=== PATIENT | female | born 1955 | race Caucasian/White ===

== ENCOUNTER 2017-06-18 08:43 | Emergency (ER) | payer OTHER ==
[2017-06-18 09:04] VITALS: BMI 30.4
--- NOTE | 2017-06-18 09:25 | C.PDOC ---
History Of Present Illness <Nguyen Nicole DO - Last Filed: 06/18/17 16:39> <Kailash Mae DO - Last Filed: 06/18/17 17:45> Patient is a 61 year old female with PMHx of gastritis who presents to the ED with complaint of right arm pain since night. Patient denies trauma or injury to her shoulder or arm. She complains of right hand pain, weakness, and numbness. She states her pain was 8/10 yesterday, 7/10 today. She states she took ibuprofen and naproxen yesterday without relief. (Nguyen Nicole DO) History Per: Patient Onset/Duration Of Symptoms: Days Current Symptoms Are (Timing): Still Present Severity: Moderate Pain Scale Rating Of: 7 <Nguyen Nicole DO - Last Filed: 06/18/17 16:39> <Kailash Mae DO - Last Filed: 06/18/17 17:45> Chief Complaint (Nursing): Upper Extremity Problem/Injury Past Medical History - Medical History PMH: Bronchitis, Gastritis Family History: States: Unknown Family Hx - Social History Hx Alcohol Use: No Hx Substance Use: No - Immunization History Hx Tetanus Toxoid Vaccination: No Hx Influenza Vaccination: No Hx Pneumococcal Vaccination: No <Nguyen Nicole DO - Last Filed: 06/18/17 16:39> Vital Signs: Last Vital Signs Temp 98.1 F 06/18/17 11:02 Pulse 68 06/18/17 11:02 Resp 20 06/18/17 11:02 BP 113/81 06/18/17 11:02 Pulse Ox 97 06/18/17 16:40 Review Of Systems Constitutional: Negative for: Fever, Chills Eyes: Negative for: Pain ENT: Negative for: Ear Pain Cardiovascular: Negative for: Chest Pain, Palpitations Respiratory: Negative for: Cough, Shortness of Breath Gastrointestinal: Negative for: Nausea, Vomiting, Abdominal Pain Musculoskeletal: Positive for: Shoulder Pain, Arm Pain, Hand Pain. Negative for : Neck Pain Neurological: Positive for: Numbness (right arm) <Nguyen Nicole DO - Last Filed: 06/18/17 16:39> Physical Exam - Physical Exam Appears: No Acute Distress Skin: Warm, Other (left neck skin tag about 1cm in diameter) Head: Atraumatic, Normacephalic Eye(s): bilateral: EOMI Nose: Normal Oral Mucosa: Moist Tongue: Normal Appearing Lips: Normal Appearing Neck: Normal ROM, No Midline Cervical Tenderness, No Paracervical Tenderness, Supple Chest: Symmetrical Cardiovascular: Rhythm Regular Respiratory: Normal Breath Sounds Gastrointestinal/Abdominal: Bowel Sounds, Soft, No Tenderness Extremity: No Normal ROM (right shoulder ROM reduced due to pain) Extremity: Bilateral: Other (5/5 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 [Outside] Disposition: HOME/ ROUTINE Condition: GOOD Additional Instructions: Thank you for letting us take care of you today. The emergency medical care you received today was directed at your acute symptoms. If you were prescribed any medication, please fill it and take as directed. It may take several days for your symptoms to resolve. Return to the Emergency Department if your symptoms worsen, do not improve, or if you have any other problems. Please contact your doctor or call one of the physicians/clinics you have been referred to that are listed on the Patient Visit Information form that is included in your discharge packet. Bring any paperwork you were given at discharge with you along with any medications you are taking to your follow up visit. Our treatment cannot replace ongoing medical care by a primary care provider (PCP) outside of the emergency department. Thank you for allowing the [facility] team to be part of your care today. Follow up with the clinic this week for re-evaluation and further management. Prescriptions: Ibuprofen [Motrin] 600 mg PO Q6 PRN #20 tab PRN Reason: Pain, Moderate (4-7) predniSONE [Prednisone] 40 mg PO DAILY #10 tab Instructions: Shoulder Sprain Forms: Work Excuse - Clinical Impression Clinical Impression: Muscle strain - PA / MAP PLOTTER / Resident Statement NAMAN has reviewed & agrees with the documentation as recorded. / has examined the patient and agrees with the treatment plan. <Nguyen Nicole DO - Last Filed: 06/18/17 16:39> - PA / MAP PLOTTER / Resident Statement NAMAN has reviewed & agrees with the documentation as recorded. NAMAN has examined the patient and agrees with the treatment plan. <Kailash Mae DO - Last Filed: 06/18/17 17:45>
--- NOTE | 2017-06-18 10:54 | RAD ---
PROCEDURE: Radiographs of the Right Shoulder HISTORY: right shoulder pain, numbness COMPARISON: No prior. FINDINGS: BONES: Normal. No fracture. JOINTS: Glenohumeral osteoarthritis. Minimal acromioclavicular degenerative arthritis. SOFT TISSUES: Normal. OTHER FINDINGS: None. IMPRESSION: No acute fracture. Right glenohumeral osteoarthritis.
[2017-06-18 11:03] VITALS: BP 113/81; PULSE 68; RESP 20; TEMP 98.1
[2017-06-18 16:41] VITALS: O2SAT 97
== END 2017-06-18 11:14 | disposition home or self-care (01) ==
LOC: C.ER 08:43
DX: S46.911A Strain of unspecified muscle, fascia and tendon at shoulder and upper arm level, right arm, initial encounter (principal); X58.XXXA Exposure to other specified factors, initial encounter

== ENCOUNTER 2018-06-08 10:13 | Observation (INO) | payer MEDICAID, OTHER ==
[2018-06-08 10:21] VITALS: BMI 29.5
--- NOTE | 2018-06-08 11:23 | C.PDOC ---
History Of Present Illness 52-year-old female with a history of Pulmonic valve repair at age 4 presents to the emergency department with complaints of sharp intermittent pain radiating from her epigastric area to her left axilla, feels like it goes under her ribs. . Patient states that when the pain is bad she is short of breath but not diaphoretic. Patient also reports a cough and states that she is a smoker. Patient reports nausea but denies leg pain or swelling. Patient states that she tried Mylanta with no improvement.denies any skin rash. Time Seen by Provider: 06/08/18 10:31 Chief Complaint (Nursing): Abdominal Pain History Per: Patient History/Exam Limitations: no limitations Onset/Duration Of Symptoms: Days Current Symptoms Are (Timing): Still Present Location Of Pain/Discomfort: Epigastric, Other Quality Of Discomfort: "Pain" Associated Symptoms: Nausea, Other (shortness of breath, cough). denies: Vomiting Past Medical History Reviewed: Historical Data, Nursing Documentation, Vital Signs Vital Signs: Last Vital Signs Temp 90 F L 06/08/18 10:21 Pulse 90 06/08/18 10:21 Resp 20 06/08/18 10:21 BP 119/82 06/08/18 10:21 Pulse Ox 96 06/08/18 10:21 - Medical History PMH: Bronchitis, Gastritis Surgical History: No Surg Hx Family History: States: No Known Family Hx - Social History Hx Alcohol Use: No Hx Substance Use: No - Immunization History Hx Tetanus Toxoid Vaccination: No Hx Influenza Vaccination: No Hx Pneumococcal Vaccination: No Review Of Systems Constitutional: Negative for: Fever, Chills, Sweats Cardiovascular: Positive for: Chest Pain. Negative for: Palpitations, Edema, Light Headedness Respiratory: Positive for: Cough, Shortness of Breath Gastrointestinal: Positive for: Nausea, Abdominal Pain (epigastric tenderness). Negative for: Vomiting Genitourinary: Negative for: Dysuria, Frequency Musculoskeletal: Negative for: Leg Pain Skin: Negative for: Rash Neurological: Negative for: Weakness, Numbness, Headache Physical Exam - Physical Exam Appears: Non-toxic, No Acute Distress Skin: Warm, Dry, No Rash Head: Atraumatic, Normacephalic Eye(s): bilateral: Normal Inspection, PERRL, EOMI Oral Mucosa: Moist Neck: Normal, Supple Chest: Symmetrical, No Tenderness Cardiovascular: Rhythm Regular, No Murmur Respiratory: Normal Breath Sounds, No Rales, No Rhonchi, No Wheezing Gastrointestinal/Abdominal: Bowel Sounds, Soft, Tenderness (epigastric), No Distention, No Guarding, No Rebound Extremity: Normal ROM, No Tenderness, No Pedal Edema, No Calf Tenderness Pulses: Left Dorsalis Pedis: Normal, Right Dorsalis Pedis: Normal Neurological/Psych: Oriented x3, Normal Speech, Normal Cognition ED Course And Treatment - Laboratory Results Result Diagrams: 06/08/18 11:32 06/08/18 11:32 Interpretation Of ECG: Normal sinus rhythm at 86bpm, incomplete RBBB, borderline EKG O2 Sat by Pulse Oximetry: 96 (RA) Pulse Ox Interpretation: Normal - Other Rad CXR X-Ray: Viewed By Me, Read By Radiologist Interpretation: IMPRESSION: Prominent reticular opacities at the lung bases more on the left. Medical Decision Making Medical Decision Making: Plan: EKG Chemistry Hematology CXR Pepcid 20mg IVP Urinalysis Old EKG from 07-27-12 reviewed, current EKG is unchanged from prior. 1205 pt with elevated d-dimer, o2 saturation of 94-95 room air; will get chest cta to eval for pe. 1340 pt returned to ed from ct, now crying from pain in left axillary area from movement of stretcher. pt points to area on left side, generalized tenderness to palpation of left lateral chest area. no particular bony tenderness, no warmth or swelling noted, no crepitus palapted. mild erythematous patch now seen distal to tender area, no vesicles noted. chest cta reviewed; pt has cardiomegaly, enlarged pulmonary artery, hiatal hernia and left lung infiltrate. no pe noted, will give pt antibiotics and toradol and admit to Dr Finch, discussed with her. Disposition Discussed With .: Sharon Finch Doctor Will See Patient In The: Hospital - Disposition Disposition: HOSPITALIZED Disposition Time: 14:11 Condition: GOOD - Clinical Impression Clinical Impression: Chest pain, Pneumonia - PA / EGYPTOLOGIST / Resident Statement MD/DO has reviewed & agrees with the documentation as recorded. - Scribe Statement The provider has reviewed the documentation as recorded by the Scribe (Les Rodriguez) All medical record entries made by the Scribe were at my direction and personally dictated by me. I have reviewed the chart and agree that the record accurately reflects my personal performance of the history, physical exam, medical decision making, and the department course for this patient. I have also personally directed, reviewed, and agree with the discharge instructions and disposition.
[2018-06-08 11:41] LABS: BASO # 0.1 K/uL (0.0-0.2); BASO % 0.7 % (0.0-2.0); EOS # 0.1 K/uL (0.0-0.7); EOS % 0.9 % (0.0-4.0); HEMOGLOBIN 14.1 g/dL (11.0-16.0); LYMPH # 2.4 K/uL (1.0-4.3); LYMPH % 21.9 % (20.0-40.0); MEAN CORPUSCULAR HEMOGLOBIN 31.1 pg (27.0-31.0); MEAN CORPUSCULAR HGB CONC 34.5 g/dL (33.0-37.0); MEAN PLATELET VOLUME 9.4 fL (7.2-11.7); MONO # 1.1 K/uL (0.0-0.8); MONO % 10.2 % (0.0-10.0); NEUT # 7.2 K/uL (1.8-7.0); NEUT % 66.3 % (50.0-75.0); RBC 4.55 Mil/uL (3.80-5.20); RED CELL DISTRIBUTION WIDTH 13.2 % (11.5-14.5); WHITE BLOOD COUNT 10.8 K/uL (4.8-10.8)
[2018-06-08 11:44] LABS: SQUAMOUS EPITHIAL 1 /hpf (0-5); URINE BILIRUBIN NEGATIVE (NEGATIVE); URINE BLOOD NEGATIVE (NEGATIVE); URINE CLARITY Hazy (Clear); URINE COLOR Yellow (YELLOW); URINE GLUCOSE (UA) NORMAL (Normal); URINE LEUKOCYTE ESTERASE TRACE Leu/uL (Negative); URINE PROTEIN NEGATIVE (NEGATIVE)
[2018-06-08 11:48] LABS: ALB/GLOB RATIO 1.6 (1.0-2.1); ALBUMIN 4.4 g/dL (3.5-5.0); AST/SGOT 18 U/L (14-36); BLOOD UREA NITROGEN 10 mg/dL (7-17); CALCIUM 9.5 mg/dl (8.6-10.4); GFR NON-AFRICAN AMERICAN > 60; LIPASE 65 U/L (23-300)
[2018-06-08 11:49] LABS: ALT/SGPT < 6 U/L (9-52)
[2018-06-08] MEDS ORDERED: Iodixanol 320 MG/ML 100 ML BOTTLE IV ONE (12:39)
--- NOTE | 2018-06-08 13:21 | RAD ---
Date of service: 06/08/2018 HISTORY: chest pain COMPARISON: Comparison is made with 07/27/2012 TECHNIQUE: Chest PA and lateral views FINDINGS: LUNGS: Prominent reticular opacities noted at the lung bases left more than right. Otherwise no significant interval changes PLEURA: No significant pleural effusion identified. No pneumothorax apparent. CARDIOVASCULAR: No aortic atherosclerotic calcification present. Normal cardiac size. No pulmonary vascular congestion. OSSEOUS STRUCTURES: No significant abnormalities. VISUALIZED UPPER ABDOMEN: Normal. OTHER FINDINGS: None. IMPRESSION: Prominent reticular opacities at the lung bases more on the left.
--- NOTE | 2018-06-08 13:41 | CT ---
Date of service: 06/08/2018 PROCEDURE: CT Chest with contrast (Pulmonary Angiogram) HISTORY: left chest/lung pain, elevated ddimer, smoker COMPARISON: Comparison is made to the previous study dated 07/27/2012 TECHNIQUE: Axial computed tomography images were obtained of the chest in the pulmonary arterial phase of enhancement. Coronal and sagittal reformatted images were created and reviewed. Intravenous contrast dose: 100 mL of Visipaque 320 intravenously. Radiation dose: Total exam DLP = 621.72 mGy-cm. This CT exam was performed using one or more of the following dose reduction techniques: Automated exposure control, adjustment of the mA and/or kV according to patient size, and/or use of iterative reconstruction technique. FINDINGS: PULMONARY ARTERIES: No evidence of filling defect in the visualized pulmonary arteries to suggest acute pulmonary embolus. Again noted is markedly enlarged main pulmonary artery suggestive of underline severe pulmonary hypertension. AORTA: No acute findings. No thoracic aortic aneurysm. Small punctate atherosclerotic calcification at the aorta are noted. LUNGS: Airspace consolidation noted at the left lung lower lobe suspicious for pneumonia or less likely atelectasis. PLEURAL SPACES: Small left pleural effusion is noted. HEART: The heart is mildly to moderately enlarged. The right heart is enlarged. LYMPH NODES: No lymphadenopathy. BONES, CHEST WALL: Unremarkable. No fracture or destructive lesion . The patient is again status post bilateral breast implants. OTHER FINDINGS: Again noted is large hiatus hernia in the retrocardiac space. There is low-attenuation lesion at the anterior aspect of the liver measures 1.6 centimeter has increased in size since the previous exam. Again noted are low-attenuation nodule/small masses at the bilateral adrenal glands which have increased in size since the previous exam. IMPRESSION: No evidence of acute pulmonary embolus. Markedly enlarged main pulmonary artery is again noted. Cardiomegaly and enlargement of the right heart. Airspace consolidation at the left lower lobe associated with small left pleural effusion suspicious for pneumonia. Additional findings as discussed above.
[2018-06-08] MEDS ORDERED: Moxifloxacin IV 400mg/250ml NS 400 MG/250 ML BAG IVPB ONE ×2 (14:02→14:21)
--- NOTE | 2018-06-08 14:38 | CP.PCM.HP ---
<Petr Mckeon - Last Filed: 06/08/18 16:00> History of Present Illness - History of Present Illness History of Present Illness: 62 year old female with a past medical history of pulmonic stenosis, ovarian cyst, and fibroids who presents to the hospital after reporting chest pain located on her left ribs that began on Saturday. She states the pain is sharp in nature and rates it a 6/10 in severity. Patient states the pain was so bad at times it woke her from her sleep the past two nights. Patient denies taking anything for the pain because she didn't know what she should take. She also is reporting generalized fatigue and non-productive cough in conjunction with the presenting symptoms. Patient denies any fevers, chills, headaches, dizziness, changes in vision, abdominal pain, constipation, diarrhea, or any other complaints. PMD: Denies Medical history: pulmonic stenosis, ovarian cyst, fibroids Allergies: PCN, vancomycin Surgical history: Hysterectomy, ? pulmonic valve repair Social history: 1/2-1 ppd x 20 years. Social drinker. Denies illicit drug use. Patient recently relocated from [place] to help her daughter take care of her children. Cardiac history: Does report echocardiogram in the past. Unknown of results. Denies cardiac catherization or stress test. Present on Admission - Present on Admission Any Indicators Present on Admission: No Review of Systems - Constitutional Constitutional: Fatigue. absent: Anorexia, Chills, Fever, Frequent Falls, Malaise, Night Sweats, Weakness - EENT Eyes: absent: Blurred Vision, Diplopia, Itchy Eyes, Loss of Peripheral Vision, Sees Flashes, Loss of Vision Ears: absent: Ear Discharge, Dizziness Nose/Mouth/Throat: absent: Nasal Congestion, Nasal Trauma, Nose Pain, Bleeding Gums, Dysphagia, Mouth Pain, Facial Pain - Cardiovascular Cardiovascular: Chest Pain. absent: Claudication, Irregular Heart Rhythm, Leg Edema, Palpitations, Radiating Pain, Syncope - Respiratory Respiratory: Cough. absent: Dyspnea, Hemoptysis, Stridor, Pain on Inspiration, Change in Mucous Color - Gastrointestinal Gastrointestinal: absent: Belching, Dyspepsia, Dysphagia, Fecal Incontinence, Heartburn, Melena, Nausea - Genitourinary Genitourinary: absent: Change in Urinary Stream, Pyuria, Nocturia, Urinary Hesitance - Musculoskeletal Musculoskeletal: absent: Arthralgias, Atrophy, Myalgias, Neck Pain, Tingling - Integumentary Integumentary: absent: Bleeding Lesions, Changing Lesions, Lesions, Rash, Striae, Swelling - Neurological Neurological: absent: Abnormal Hearing, Disequilibrium, Dizziness, Focal Weakness, Restless Legs, Tremor, Vertigo, Weakness - Psychiatric Psychiatric: absent: Confusion, Depression, Panic Attacks, Suicidal Ideation - Endocrine Endocrine: absent: Polydipsia, Polyphagia, Polyuria - Hematologic/Lymphatic Hematologic: absent: Easy Bleeding, Easy Bruising Past Patient History - Infectious Disease Hx of Infectious Diseases: None - Past Social History Smoking Status: Heavy Smoker > 10 Cigarettes Daily - PULMONARY Hx Bronchitis: Yes - MUSCULOSKELETAL/RHEUMATOLOGICAL Other/Comment: Vertigo - GASTROINTESTINAL Hx Gastritis: Yes - PSYCHIATRIC Hx Substance Use: No - SURGICAL HISTORY Hx Hysterectomy: Yes Hx Open Heart Surgery: Yes (age 4) Other/Comment: CYST REMOVAL PER PATIENT - ANESTHESIA Hx Anesthesia: Yes Hx Anesthesia Reactions: No Meds Allergies/Adverse Reactions: Allergies Allergy/AdvReac Type Severity Reaction Status Date / Time Penicillins Allergy Verified 06/08/18 10:20 vancomycin Allergy SHORTNESS Verified 06/08/18 10:20 OF BREATH Physical Exam - Head Exam Head Exam: ATRAUMATIC, NORMAL INSPECTION, NORMOCEPHALIC - Eye Exam Eye Exam: EOMI, Normal appearance, PERRL. absent: Periorbital tenderness Pupil Exam: NORMAL ACCOMODATION, PERRL. absent: Irregular - ENT Exam ENT Exam: Mucous Membranes Moist, Normal Oropharynx - Respiratory Exam Respiratory Exam: Clear to Auscultation Bilateral, NORMAL BREATHING PATTERN. absent: Prolonged Expiratory Phase, Respiratory Distress - Cardiovascular Exam Cardiovascular Exam: REGULAR RHYTHM, RRR, +S1, +S2. absent: Rubs - GI/Abdominal Exam GI & Abdominal Exam: Normal Bowel Sounds, Soft. absent: Tenderness - Back Exam Back exam: NORMAL INSPECTION. absent: CVA tenderness (L), CVA tenderness (R), paraspinal tenderness - Neurological Exam Neurological exam: Alert, CN II-XII Intact, Oriented x3 - Psychiatric Exam Psychiatric exam: Normal Affect, Normal Mood - Skin Skin Exam: Dry, Intact, Normal Color Results - Vital Signs Recent Vital Signs: Last Vital Signs Temp 99.0 F 06/08/18 11:22 Pulse 90 06/08/18 10:21 Resp 20 06/08/18 10:21 BP 119/82 06/08/18 10:21 Pulse Ox 96 06/08/18 14:11 - Labs Result Diagrams: 06/08/18 11:32 06/08/18 11:32 Labs: Laboratory Results - last 24 hr 06/08/18 06/08/18 06/08/18 11:32 11:32 11:32 WBC 10.8 D RBC 4.55 Hgb 14.1 Hct 41.0 MCV 90.0 MCH 31.1 H MCHC 34.5 RDW 13.2 Plt Count 238 MPV 9.4 Neut % (Auto) 66.3 Lymph % (Auto) 21.9 [place] % (Auto) 10.2 H Eos % (Auto) 0.9 Baso % (Auto) 0.7 Neut # (Auto) 7.2 H Lymph # (Auto) 2.4 [place] # (Auto) 1.1 H Eos # (Auto) 0.1 Baso # (Auto) 0.1 D-Dimer, Quantitative 621 H Sodium 135 Potassium 4.1 Chloride 105 Carbon Dioxide 23 Anion Gap 11 BUN 10 Creatinine 0.6 L Est GFR ( Amer) > 60 Est GFR (Non-Af Amer) > 60 Random Glucose 92 Calcium 9.5 Total Bilirubin 0.5 AST 18 ALT < 6 L D Alkaline Phosphatase 82 Troponin I < 0.0120 Total Protein 7.1 Albumin 4.4 Globulin 2.8 Albumin/Globulin Ratio 1.6 Lipase 65 Urine Color Urine Clarity Urine pH Ur Specific [place] Urine Protein Urine Glucose (UA) Urine Ketones Urine Blood Urine Nitrate Urine Bilirubin Urine Urobilinogen Ur Leukocyte Esterase Urine WBC (Auto) Urine RBC (Auto) Ur Squamous Epith Cells 06/08/18 11:32 WBC RBC Hgb Hct MCV MCH MCHC RDW Plt Count MPV Neut % (Auto) Lymph % (Auto) [place] % (Auto) Eos % (Auto) Baso % (Auto) Neut # (Auto) Lymph # (Auto) [place] # (Auto) Eos # (Auto) Baso # (Auto) D-Dimer, Quantitative Sodium Potassium Chloride Carbon Dioxide Anion Gap BUN Creatinine Est GFR ( Amer) Est GFR (Non-Af Amer) Random Glucose Calcium Total Bilirubin AST ALT Alkaline Phosphatase Troponin I Total Protein Albumin Globulin Albumin/Globulin Ratio Lipase Urine Color Yellow Urine Clarity Hazy Urine pH 5.0 Ur Specific [place] 1.023 Urine Protein Negative Urine Glucose (UA) Normal Urine Ketones Trace Urine Blood Negative Urine Nitrate Negative Urine Bilirubin Negative Urine Urobilinogen 2.0 H Ur Leukocyte Esterase Trace Urine WBC (Auto) 1 Urine RBC (Auto) 1 Ur Squamous Epith Cells 1 Assessment & Plan - Assessment and Plan (Free Text) Assessment: 62 year old female with a past medical history of pulmonic stenosis, fibroids and ovarian cyst presents with chest pain for the past three days. Plan: 1.Chest pain r/o acs EKG:Normal sinus rhythm at 86bpm, incomplete RBBB, borderline EKG Aspirin 325mg PO STAT Troponin (-)x1. Will trend troponins TSH ordered. Will f/u with results Hemoglobin A1C ordered. Will f/u with results Lipid panel ordered .Will f/u with results. 2.Pneumonia CXR:Prominent reticular opacities at the lung bases more on the left. CTA:No evidence of acute pulmonary embolus. Markedly enlarged main pulmonary artery is again noted. Cardiomegaly and enlargement of the right heart. Airspace consolidation at the left lower lobe associated with small left pleural effusion suspicious for pneumonia. Medications: Moxifloxacin 400mg IVPB DAILY 3.Elevated d-dimer d-dimer 621 on admission CTA:CTA:No evidence of acute pulmonary embolus. Markedly enlarged main pulmonary artery is again noted. Cardiomegaly and enlargement of the right heart. Airspace consolidation at the left lower lobe associated with small left pleural effusion suspicious for pneumonia. 4.Active mole on neck -Will refer to [facility] or [facility] for further workup. 5. Enlarged pulmonary artery -Echocardiogram ordered. Will f/u with results. ppx -Heparin -GI ppx not indicated at this time. Plan discussed with Attending Dr. Zuluaga. Petr Mckeon, PGY-2 <Rosalie Zuluaga - Last Filed: 06/08/18 16:51> Results - Vital Signs Recent Vital Signs: Last Vital Signs Temp 98.2 F 06/08/18 15:39 Pulse 73 06/08/18 15:39 Resp 20 06/08/18 15:39 BP 125/83 06/08/18 15:39 Pulse Ox 97 06/08/18 15:39 - Labs Result Diagrams: 06/08/18 11:32 06/08/18 11:32 Labs: Laboratory Results - last 24 hr 06/08/18 06/08/18 06/08/18 11:32 11:32 11:32 WBC 10.8 D RBC 4.55 Hgb 14.1 Hct 41.0 MCV 90.0 MCH 31.1 H MCHC 34.5 RDW 13.2 Plt Count 238 MPV 9.4 Neut % (Auto) 66.3 Lymph % (Auto) 21.9 [place] % (Auto) 10.2 H Eos % (Auto) 0.9 Baso % (Auto) 0.7 Neut # (Auto) 7.2 H Lymph # (Auto) 2.4 [place] # (Auto) 1.1 H Eos # (Auto) 0.1 Baso # (Auto) 0.1 D-Dimer, Quantitative 621 H Sodium 135 Potassium 4.1 Chloride 105 Carbon Dioxide 23 Anion Gap 11 BUN 10 Creatinine 0.6 L Est GFR ( Amer) > 60 Est GFR (Non-Af Amer) > 60 Random Glucose 92 Calcium 9.5 Total Bilirubin 0.5 AST 18 ALT < 6 L D Alkaline Phosphatase 82 Troponin I < 0.0120 NT-Pro-B Natriuret Pep Total Protein 7.1 Albumin 4.4 Globulin 2.8 Albumin/Globulin Ratio 1.6 Triglycerides Cholesterol LDL Cholesterol Direct HDL Cholesterol Lipase 65 TSH 3rd Generation Urine Color Urine Clarity Urine pH Ur Specific [place] Urine Protein Urine Glucose (UA) Urine Ketones Urine Blood Urine Nitrate Urine Bilirubin Urine Urobilinogen Ur Leukocyte Esterase Urine WBC (Auto) Urine RBC (Auto) Ur Squamous Epith Cells 06/08/18 06/08/18 06/08/18 11:32 14:18 15:36 WBC RBC Hgb Hct MCV MCH MCHC RDW Plt Count MPV Neut % (Auto) Lymph % (Auto) [place] % (Auto) Eos % (Auto) Baso % (Auto) Neut # (Auto) Lymph # (Auto) [place] # (Auto) Eos # (Auto) Baso # (Auto) D-Dimer, Quantitative Sodium Potassium Chloride Carbon Dioxide Anion Gap BUN Creatinine Est GFR ( Amer) Est GFR (Non-Af Amer) Random Glucose Calcium Total Bilirubin AST ALT Alkaline Phosphatase Troponin I NT-Pro-B Natriuret Pep 295 Total Protein Albumin Globulin Albumin/Globulin Ratio Triglycerides 97 Cholesterol 170 LDL Cholesterol Direct 103 HDL Cholesterol 56 Lipase TSH 3rd Generation 1.08 Urine Color Yellow Urine Clarity Hazy Urine pH 5.0 Ur Specific [place] 1.023 Urine Protein Negative Urine Glucose (UA) Normal Urine Ketones Trace Urine Blood Negative Urine Nitrate Negative Urine Bilirubin Negative Urine Urobilinogen 2.0 H Ur Leukocyte Esterase Trace Urine WBC (Auto) 1 Urine RBC (Auto) 1 Ur Squamous Epith Cells 1 Attending/Attestation - Attestation I have personally seen and examined this patient.: Yes I have fully participated in the care of the patient.: Yes I have reviewed all pertinent clinical information: Yes Notes (Text): seen and examined . Patient is from [place]. She is here to help her daughter. Has h/o pulmonary valve repair when she was a child. no significant other medical history Came for pleuritic type chest pain. CTA negative for PE.has L lower lobe pneumonia.Patient has a mole on her left neck,denies sob,no fever we will observe tonight,do troponin and tele monitor avelox for pneumonia CT shows enlarged pulmonary artery and cardiomegaly-we will do an Echo
[2018-06-08 15:40] VITALS: RESP 20
[2018-06-08 19:54] LABS: CK-MB 0.64 ng/mL (0.0-3.38)
[2018-06-08] MEDS: Albuterol-Ipratrop 3 mg / 0.5 (3 ml) UD INH SCH (20:38)
[2018-06-08] MEDS ORDERED: Magnesium Hydroxide Susp 30 ml UD PO ONE (21:03)
[2018-06-09] MEDS: Albuterol-Ipratrop 3 mg / 0.5 (3 ml) UD INH SCH ×3 (01:31→13:15)
[2018-06-09 03:51] LABS: CK-MB 0.33 ng/mL (0.0-3.38)
[2018-06-09 07:59] LABS: BASO % 0.5 % (0.0-2.0); EOS # 0.1 K/uL (0.0-0.7); EOS % 0.9 % (0.0-4.0); HEMOGLOBIN 13.9 g/dL (11.0-16.0); LYMPH % 23.3 % (20.0-40.0); MEAN CELL VOLUME 90.4 fL (81.0-99.0); MEAN CORPUSCULAR HEMOGLOBIN 31.1 pg (27.0-31.0); MEAN CORPUSCULAR HGB CONC 34.4 g/dL (33.0-37.0); MEAN PLATELET VOLUME 9.8 fL (7.2-11.7); MONO % 11.6 % (0.0-10.0); NEUT # 5.4 K/uL (1.8-7.0); NEUT % 63.7 % (50.0-75.0); RBC 4.45 Mil/uL (3.80-5.20); RED CELL DISTRIBUTION WIDTH 12.9 % (11.5-14.5); WHITE BLOOD COUNT 8.4 K/uL (4.8-10.8)
[2018-06-09 08:04] LABS: ALB/GLOB RATIO 1.3 (1.0-2.1); ALBUMIN 3.9 g/dL (3.5-5.0); ALT/SGPT 10 U/L (9-52); AST/SGOT 15 U/L (14-36); BLOOD UREA NITROGEN 11 mg/dL (7-17); CALCIUM 9.2 mg/dl (8.6-10.4); GFR NON-AFRICAN AMERICAN > 60
[2018-06-09 08:22] VITALS: BP 99/66; PULSE 83; TEMP 98.1; O2SAT 92
--- NOTE | 2018-06-09 08:45 | CP.PCM.PN ---
Subjective - Date & Time of Evaluation Date of Evaluation: 06/09/18 Time of Evaluation: 08:41 - Subjective Subjective: Medicine progress note for Dr. Bowman Pt seen and examined at bedside. Pt denies any complaints at this time. Reports resolution of left rib pain. Denies fever, chills, chest pain, sob, palpitations, abdominal pain, n/v/d, headache, dizziness, lightheadedness. Objective - Vital Signs/Intake and Output Vital Signs (last 24 hours): Temp Pulse Resp BP Pulse Ox 98.1 F 83 20 99/66 L 92 L 06/09/18 08:00 06/09/18 08:00 06/09/18 08:00 06/09/18 08:00 06/09/18 08:00 - Medications Medications: Current Medications Acetaminophen (Tylenol 325mg Tab) 650 mg PO Q6 PRN PRN Reason: Fever >100.4 F Albuterol/Ipratropium (Duoneb 3 Mg/0.5 Mg (3 Ml) Ud) 3 ml INH RQ6 ELVIRA Last Admin: 06/09/18 07:47 Dose: 3 ml Aspirin (Aspirin Chewable) 81 mg PO DAILY ELVIRA Heparin Sodium (Porcine) (Heparin) 5,000 units SC Q12 ELVIRA Last Admin: 06/08/18 21:09 Dose: 5,000 units Moxifloxacin HCl (Avelox Iv 400mg/250ml Ns) 400 mg in 250 mls @ 167 mls/hr IVPB DAILY ELVIRA; Protocol Nicotine (Nicoderm Cq) 1 patch TD DAILY ELVIRA Last Admin: 06/08/18 21:09 Dose: 1 patch Pneumococcal Polyvalent Vaccine (Pneumovax 23 Vaccine) 0.5 ml IM .ONCE ONE Stop: 06/11/18 10:01 - Labs Labs: 06/09/18 07:40 06/09/18 07:40 - Additional Findings Additional findings: - Head Exam Head Exam: ATRAUMATIC, NORMAL INSPECTION, NORMOCEPHALIC - Eye Exam Eye Exam: EOMI, Normal appearance. - ENT Exam ENT Exam: Mucous Membranes Moist - Respiratory Exam Respiratory Exam: Clear to Auscultation Bilateral, NORMAL BREATHING PATTERN, Decreased breath sounds. absent: Prolonged Expiratory Phase, Respiratory Distress, Rhonchi, Wheezes, Rales - Cardiovascular Exam Cardiovascular Exam: REGULAR RHYTHM, +S1, +S2. absent: Rubs - GI/Abdominal Exam GI & Abdominal Exam: Normal Bowel Sounds, Soft. absent: Tenderness - Back Exam Back exam: NORMAL INSPECTION. absent: CVA tenderness (L), CVA tenderness (R), paraspinal tenderness - Neurological Exam Neurological exam: Alert, CN II-XII Intact, Oriented x3 - Psychiatric Exam Psychiatric exam: Normal Affect, Normal Mood - Skin Skin Exam: Dry, Intact, Normal Color (+) approximately 4 cm mole to the left lateral upper neck with stalk, nontender, no signs of infection, homogenous color; chronic Assessment and Plan - Assessment and Plan (Free Text) Assessment: 62 year old female with a past medical history of pulmonic stenosis, fibroids and ovarian cyst presents with chest pain for the past three days. Plan: Chest pain, resolved Likely musculoskeletal as responded well to Toradol and Tylenol EKG:Normal sinus rhythm at 86bpm, incomplete RBBB, borderline EKG Full dose ASA given on admission Troponin negative x3 F/u Echocardiogram Pneumonia Afebrile, no leukocytosis, no tachycardia CXR:Prominent reticular opacities at the lung bases more on the left. CTA:No evidence of acute pulmonary embolus. Markedly enlarged main pulmonary artery is again noted. Cardiomegaly and enlargement of the right heart. Airspace consolidation at the left lower lobe associated with small left pleural effusion suspicious for pneumonia. Medications: Moxifloxacin 400mg IVPB DAILY Duonebs Elevated d-dimer d-dimer 621 on admission CTA:CTA:No evidence of acute pulmonary embolus. Markedly enlarged main pulmonary artery is again noted. Cardiomegaly and enlargement of the right heart. Airspace consolidation at the left lower lobe associated with small left pleural effusion suspicious for pneumonia. Impaired Glucose Tolerance Hemoglobin A1C is 6.0 TG/CHL/LDL/HDL is 97/170/103/56 TSH is 1.08 Advised on diet and exercise modifications. Nicotine dependance Nicotine patch Pt indicates she is interested in quitting, provided with pamphlets Active mole on neck -Will refer to [facility] or [facility] for further workup. Enlarged pulmonary artery -Echocardiogram ordered. Will f/u with results. ppx -Heparin -GI ppx not indicated at this time.
[2018-06-09] MEDS ORDERED: Moxifloxacin IV 400mg/250ml NS 400 MG/250 ML BAG IVPB SCH (10:00)
--- NOTE | 2018-06-09 14:53 | CP.PCM.DIS ---
<Rosalio Carpentre - Last Filed: 06/09/18 15:36> Provider - Provider Date of Admission: 06/08/18 14:10 Attending physician: Sharon Finch DO Time Spent in preparation of Discharge (in minutes): 35 Diagnosis - Discharge Diagnosis (1) Musculoskeletal chest pain Status: Resolved (2) Pulmonary artery abnormality Status: Chronic (3) H/O pulmonic valve repair Status: Chronic (4) Pneumonia Status: Acute Hospital Course - Lab Results Lab Results: Micro Results 06/08/18 13:00 Blood-Venous Blood Culture - Preliminary NO GROWTH AFTER 24 HOURS 06/08/18 14:15 Blood-Venous Blood Culture - Preliminary NO GROWTH AFTER 24 HOURS Most Recent Lab Values WBC 8.4 K/uL (4.8-10.8) 06/09/18 07:40 RBC 4.45 Mil/uL (3.80-5.20) 06/09/18 07:40 Hgb 13.9 g/dL (11.0-16.0) 06/09/18 07:40 Hct 40.3 % (34.0-47.0) 06/09/18 07:40 MCV 90.4 fL (81.0-99.0) 06/09/18 07:40 MCH 31.1 pg (27.0-31.0) H 06/09/18 07:40 MCHC 34.4 g/dL (33.0-37.0) 06/09/18 07:40 RDW 12.9 % (11.5-14.5) 06/09/18 07:40 Plt Count 249 K/uL (130-400) 06/09/18 07:40 MPV 9.8 fL (7.2-11.7) 06/09/18 07:40 Neut % (Auto) 63.7 % (50.0-75.0) 06/09/18 07:40 Lymph % (Auto) 23.3 % (20.0-40.0) 06/09/18 07:40 [place] % (Auto) 11.6 % (0.0-10.0) H 06/09/18 07:40 Eos % (Auto) 0.9 % (0.0-4.0) 06/09/18 07:40 Baso % (Auto) 0.5 % (0.0-2.0) 06/09/18 07:40 Neut # (Auto) 5.4 K/uL (1.8-7.0) 06/09/18 07:40 Lymph # (Auto) 2.0 K/uL (1.0-4.3) 06/09/18 07:40 [place] # (Auto) 1.0 K/uL (0.0-0.8) H 06/09/18 07:40 Eos # (Auto) 0.1 K/uL (0.0-0.7) 06/09/18 07:40 Baso # (Auto) 0.0 K/uL (0.0-0.2) 06/09/18 07:40 D-Dimer, Quantitative 621 ng/mlDDU (0-243) H 06/08/18 11:32 Sodium 136 mmol/L (132-148) 06/09/18 07:40 Potassium 4.0 mmol/L (3.6-5.2) 06/09/18 07:40 Chloride 108 mmol/L (98-107) H 06/09/18 07:40 Carbon Dioxide 20 mmol/L (22-30) L 06/09/18 07:40 Anion Gap 13 (10-20) 06/09/18 07:40 BUN 11 mg/dL (7-17) 06/09/18 07:40 Creatinine 0.7 mg/dL (0.7-1.2) 06/09/18 07:40 Est GFR ( Amer) > 60 06/09/18 07:40 Est GFR (Non-Af Amer) > 60 06/09/18 07:40 Random Glucose 116 mg/dL (65-105) H D 06/09/18 07:40 Hemoglobin A1c 6.0 % (4.2-6.5) 06/08/18 15:36 Calcium 9.2 mg/dl (8.6-10.4) 06/09/18 07:40 Total Bilirubin 0.5 mg/dL (0.2-1.3) 06/09/18 07:40 AST 15 U/L (14-36) 06/09/18 07:40 ALT 10 U/L (9-52) 06/09/18 07:40 Alkaline Phosphatase 87 U/L (38-126) 06/09/18 07:40 Total Creatine Kinase 62 U/L (30-135) 06/09/18 03:24 CK-MB (Mass) 0.33 ng/mL (0.0-3.38) 06/09/18 03:24 Troponin I < 0.0120 ng/mL (0.00-0.120) 06/09/18 03:24 NT-Pro-B Natriuret Pep 295 pg/mL (0-900) 06/08/18 14:18 Total Protein 6.9 g/dL (6.3-8.3) 06/09/18 07:40 Albumin 3.9 g/dL (3.5-5.0) 06/09/18 07:40 Globulin 3.0 gm/dL (2.2-3.9) 06/09/18 07:40 Albumin/Globulin Ratio 1.3 (1.0-2.1) 06/09/18 07:40 Triglycerides 97 mg/dL (0-149) 06/08/18 15:36 Cholesterol 170 mg/dL (0-199) 06/08/18 15:36 LDL Cholesterol Direct 103 mg/dL (0-129) 06/08/18 15:36 HDL Cholesterol 56 mg/dL (30-70) 06/08/18 15:36 Lipase 65 U/L (23-300) 06/08/18 11:32 TSH 3rd Generation 1.08 mIU/L (0.46-4.68) 06/08/18 15:36 Urine Color Yellow (YELLOW) 06/08/18 11:32 Urine Clarity Hazy (Clear) 06/08/18 11:32 Urine pH 5.0 (5.0-8.0) 06/08/18 11:32 Ur Specific [place] 1.023 (1.003-1.030) 06/08/18 11:32 Urine Protein Negative mg/dL (NEGATIVE) 06/08/18 11:32 Urine Glucose (UA) Normal mg/dL (Normal) 06/08/18 11:32 Urine Ketones Trace mg/dL (NEGATIVE) 06/08/18 11:32 Urine Blood Negative (NEGATIVE) 06/08/18 11:32 Urine Nitrate Negative (NEGATIVE) 06/08/18 11:32 Urine Bilirubin Negative (NEGATIVE) 06/08/18 11:32 Urine Urobilinogen 2.0 mg/dL (0.2-1.0) H 06/08/18 11:32 Ur Leukocyte Esterase Trace Dario/uL (Negative) 06/08/18 11:32 Urine WBC (Auto) 1 /hpf (0-5) 06/08/18 11:32 Urine RBC (Auto) 1 /hpf (0-3) 06/08/18 11:32 Ur Squamous Epith Cells 1 /hpf (0-5) 06/08/18 11:32 - Hospital Course Hospital Course: On Admission: 62 year old female with past medical history of pulmonic stenosis , ovarian cyst, fibroids who presents to the hospital after reporting chest pain located on her left ribs that began on Saturday. She states the pain is sharp in nature and rates it as a 6/10 in severity. Patient states the pain was so bad at times it woke her from her sleep the past 2 nights. Patient denies taking anything for the pain because she didnt know what she should take. She also reports generalized fatigue and non-productive cough in conjunction with the presenting symptoms. Patient denies any fevers, chills, headaches, changes in vision, dizziness, abdominal pain, constipation diarrhea or other complaints. Hosp course: EKG performed on admission showed an incomplete RBBB consistent with previous (07/27/2012) EKG findings. Chest Xray showed prominent reticular opacities at the lung bases more on the left. Labs drawn on admission showed, normal BNP, elevated D-dimer of 621. A chest CTA was ordered and revealed a markedly enlarged main pulmonary artery with enlargement of the right heart, airspace consolidation at left lower lobe associated with small left pleural effusion suspicious for pneumonia. It revealed no evidence of acute pulmonary embolus. Pt started on moxifloxacin for CAP, duonebs, VTE ppx. Pt's musculoskeltal left rib pain was relieved with Tylenol and Toradol. Troponin x3 is normal. An Echocardiogram was completed to f/u the CTA results demonstrating significantly enlarged main pulmonary artery. Pending studies: Echocardiogram results still pending. Patient will be contacted with results. On discharge interview, Pt denies any complaints. Reports resolution of left rib pain. Denies fever, chills, chest pain, sob, palpitations, abdominal pain, n/v/d, headache, dizziness, lightheadedness. Throughout hospitalization, pt is afebrile, without leukocytosis, dyspnea, tachycardia, or confusion. Pt will be discharge home with 5 day course of once daily moxifloxacin, and information on appropriate follow up for left pedunculated mole, and establishment of medical care. This is a summary of the hospital course. Please see EMR for full details. Discharge Exam - Head Exam Head Exam: ATRAUMATIC, NORMAL INSPECTION - Eye Exam Eye Exam: EOMI, Normal appearance - ENT Exam ENT Exam: Mucous Membranes Moist - Respiratory Exam Respiratory Exam: Clear to PA & Lateral. absent: Chest Wall Tenderness, Rales, Rhonchi, Wheezes, Respiratory Distress - Cardiovascular Exam Cardiovascular Exam: REGULAR RHYTHM, +S1, +S2. absent: Tachycardia, Irregular Rhythm - GI/Abdominal Exam GI & Abdominal Exam: Normal Bowel Sounds, Soft. absent: Distended, Firm, Guarding, Rebound, Tenderness - Extremities Exam Extremities exam: normal capillary refill Additional comments: NO calf tenderness, no pedal edema. 2+ pulses in bilateral upper and lower distal extremities - Back Exam Back exam: NORMAL INSPECTION. absent: CVA tenderness (L), CVA tenderness (R) - Neurological Exam Neurological exam: Alert, Oriented x3 - Psychiatric Exam Psychiatric exam: Normal Affect, Normal Mood - Skin Skin Exam: Dry, Normal Color, Warm Additional comments: (+) approximately 4 cm mole to the left lateral upper neck with stalk, nontender, no signs of infection, homogenous color; chronic (+) well health vertical scar to the right lateral sternum, nontender. no signs of infection. Discharge Plan - Discharge Medications Prescriptions: Moxifloxacin HCl 400 mg PO DAILY #5 tab - Follow Up Plan Condition: GOOD Disposition: HOME/ ROUTINE Instructions: Moxifloxacin (Systemic), Pneumonia, Adult (DC), Quitting Smoking Additional Instructions: Pt is medically stable for discharge home as per Dr. Bowman Pt should continue Moxifloxacin 400 mg one tab by mouth once daily at 8 am for 5 more days. Resume home mediations as previously prescribed. Pt should follow up with [facility] within 1 week of discharge, June 16 at 9AM. They will follow up with your echocadiogram results. Please continue to exercise and diet modifications as previously talked about, including smoking cessation. You should call [facility] at to make an appointment, or you can follow up with the clinic and they will refer you to a support services rep. Should symptoms worsen, please head to the nearest Emergency Department for further evaluation. Instructions explained to the pt, who understands and agrees with discharge plan. Referrals: at [facility] [Outside] - 06/16/18 9:00 am <BowmanAmanuel Montenegro - Last Filed: 06/09/18 17:45> Provider - Provider Date of Admission: 06/08/18 14:10 Attending physician: Sharon Finch, Hospital Course - Lab Results Lab Results: Micro Results 06/08/18 13:00 Blood-Venous Blood Culture - Preliminary NO GROWTH AFTER 24 HOURS 06/08/18 14:15 Blood-Venous Blood Culture - Preliminary NO GROWTH AFTER 24 HOURS Most Recent Lab Values WBC 8.4 K/uL (4.8-10.8) 06/09/18 07:40 RBC 4.45 Mil/uL (3.80-5.20) 06/09/18 07:40 Hgb 13.9 g/dL (11.0-16.0) 06/09/18 07:40 Hct 40.3 % (34.0-47.0) 06/09/18 07:40 MCV 90.4 fL (81.0-99.0) 06/09/18 07:40 MCH 31.1 pg (27.0-31.0) H 06/09/18 07:40 MCHC 34.4 g/dL (33.0-37.0) 06/09/18 07:40 RDW 12.9 % (11.5-14.5) 06/09/18 07:40 Plt Count 249 K/uL (130-400) 06/09/18 07:40 MPV 9.8 fL (7.2-11.7) 06/09/18 07:40 Neut % (Auto) 63.7 % (50.0-75.0) 06/09/18 07:40 Lymph % (Auto) 23.3 % (20.0-40.0) 06/09/18 07:40 [place] % (Auto) 11.6 % (0.0-10.0) H 06/09/18 07:40 Eos % (Auto) 0.9 % (0.0-4.0) 06/09/18 07:40 Baso % (Auto) 0.5 % (0.0-2.0) 06/09/18 07:40 Neut # (Auto) 5.4 K/uL (1.8-7.0) 06/09/18 07:40 Lymph # (Auto) 2.0 K/uL (1.0-4.3) 06/09/18 07:40 [place] # (Auto) 1.0 K/uL (0.0-0.8) H 06/09/18 07:40 Eos # (Auto) 0.1 K/uL (0.0-0.7) 06/09/18 07:40 Baso # (Auto) 0.0 K/uL (0.0-0.2) 06/09/18 07:40 D-Dimer, Quantitative 621 ng/mlDDU (0-243) H 06/08/18 11:32 Sodium 136 mmol/L (132-148) 06/09/18 07:40 Potassium 4.0 mmol/L (3.6-5.2) 06/09/18 07:40 Chloride 108 mmol/L (98-107) H 06/09/18 07:40 Carbon Dioxide 20 mmol/L (22-30) L 06/09/18 07:40 Anion Gap 13 (10-20) 06/09/18 07:40 BUN 11 mg/dL (7-17) 06/09/18 07:40 Creatinine 0.7 mg/dL (0.7-1.2) 06/09/18 07:40 Est GFR ( Amer) > 60 06/09/18 07:40 Est GFR (Non-Af Amer) > 60 06/09/18 07:40 Random Glucose 116 mg/dL (65-105) H D 06/09/18 07:40 Hemoglobin A1c 6.0 % (4.2-6.5) 06/08/18 15:36 Calcium 9.2 mg/dl (8.6-10.4) 06/09/18 07:40 Total Bilirubin 0.5 mg/dL (0.2-1.3) 06/09/18 07:40 AST 15 U/L (14-36) 06/09/18 07:40 ALT 10 U/L (9-52) 06/09/18 07:40 Alkaline Phosphatase 87 U/L (38-126) 06/09/18 07:40 Total Creatine Kinase 62 U/L (30-135) 06/09/18 03:24 CK-MB (Mass) 0.33 ng/mL (0.0-3.38) 06/09/18 03:24 Troponin I < 0.0120 ng/mL (0.00-0.120) 06/09/18 03:24 NT-Pro-B Natriuret Pep 295 pg/mL (0-900) 06/08/18 14:18 Total Protein 6.9 g/dL (6.3-8.3) 06/09/18 07:40 Albumin 3.9 g/dL (3.5-5.0) 06/09/18 07:40 Globulin 3.0 gm/dL (2.2-3.9) 06/09/18 07:40 Albumin/Globulin Ratio 1.3 (1.0-2.1) 06/09/18 07:40 Triglycerides 97 mg/dL (0-149) 06/08/18 15:36 Cholesterol 170 mg/dL (0-199) 06/08/18 15:36 LDL Cholesterol Direct 103 mg/dL (0-129) 06/08/18 15:36 HDL Cholesterol 56 mg/dL (30-70) 06/08/18 15:36 Lipase 65 U/L (23-300) 06/08/18 11:32 TSH 3rd Generation 1.08 mIU/L (0.46-4.68) 06/08/18 15:36 Urine Color Yellow (YELLOW) 06/08/18 11:32 Urine Clarity Hazy (Clear) 06/08/18 11:32 Urine pH 5.0 (5.0-8.0) 06/08/18 11:32 Ur Specific [place] 1.023 (1.003-1.030) 06/08/18 11:32 Urine Protein Negative mg/dL (NEGATIVE) 06/08/18 11:32 Urine Glucose (UA) Normal mg/dL (Normal) 06/08/18 11:32 Urine Ketones Trace mg/dL (NEGATIVE) 06/08/18 11:32 Urine Blood Negative (NEGATIVE) 06/08/18 11:32 Urine Nitrate Negative (NEGATIVE) 06/08/18 11:32 Urine Bilirubin Negative (NEGATIVE) 06/08/18 11:32 Urine Urobilinogen 2.0 mg/dL (0.2-1.0) H 06/08/18 11:32 Ur Leukocyte Esterase Trace Dario/uL (Negative) 06/08/18 11:32 Urine WBC (Auto) 1 /hpf (0-5) 06/08/18 11:32 Urine RBC (Auto) 1 /hpf (0-3) 06/08/18 11:32 Ur Squamous Epith Cells 1 /hpf (0-5) 06/08/18 11:32 Attending/Attestation - Attestation I have personally seen and examined this patient.: Yes I have fully participated in the care of the patient.: Yes I have reviewed all pertinent clinical information, including history, physical exam and plan: Yes Notes (Text): 06/09/18 17:35 Medical attending: Patient was seen and examined by me with the medical resid ents The patient was not in any acute distress when I came and saw with the residents The pain that the patient reported previously had resolved. Her CTA was negative for PE however it did suggest a possible PNA and she was already placed on IV Avelox Her cardiac enzymes were negative x 3 The pain was reportedly reproducible yesterday with palpation however today the pain is not reproducible. She does not have pain. The patient underwent 2D echo today, she should return for the results Amanuel Bowman
--- NOTE | 2018-06-10 20:52 | CARD ---
APPROVED REPORT Date of service: 06/08/2018 EKG Measurement Heart [id number] <Conclusion> Normal sinus rhythm Incomplete right bundle branch block Borderline ECG
--- NOTE | 2018-06-10 23:06 | CARD ---
APPROVED REPORT Date of service: 06/09/2018 EXAM: Two-dimensional and M-mode echocardiogram with Doppler and color Doppler. Other Information Quality : GoodRhythm : INDICATION LV Function:Systolic HX of Pulmonary Stenosis 2D DIMENSIONS IVSd1.0 (0.7-1.1cm)LVDd4.0 (3.9-5.9cm) PWd0.7 (0.7-1.1cm)LA [id number] (18-58mL) LVEF (Walker's)65.86 %IVC0.00 cm M-Mode DIMENSIONS RVDd2.31 (2.1-3.2cm)Left Atrium (MM)3.30 (2.5-4.0cm) IVSd0.82 (0.7-1.1cm)Aortic Root3.79 (2.2-3.7cm) LVDd4.40 (4.0-5.6cm)Aortic Cusp Exc.2.28 (1.5-2.0cm) PWd1.00 (0.7-1.1cm)FS (%) 17 % LVDs3.67 (2.0-3.8cm)TAPSE13.81 cm LVEF (%)65 (>50%) Mitral Valve MV E Vmcywkqi39.2cm/sMV A Sayfphzp44.2cm/sE/A ratio0.8 TDI Lateral E' Peak V14.93cm/sMedial E' Peak V9.00cm/sE/Lateral E'4.8 E/Medial E'7.9 Pulmonary Valve PV Peak Ovlnlqtq571.7cm/sPV Peak Grad.11mmHg Tricuspid Valve TR Peak Yobhsqmd612xi/sTR Peak Gr.40dgJfSLCA60mgLc <Conclusion> Left ventricle: thickness: normal; size: normal; overall ejection fraction: 65%: diastolic filling pressures: normal Mitral valve: annulus: normal: leaflets: normal: excursion: normal; no significant trans-mitral gradient: mild incompetence: left atrium: normal Aortic valve: leaflets: normal: excursion: normal; no significant trans-aortic gradient:no incompetence: aortic root: dilated Right sided Structures: Pulmonary valve: normal; mild incompetence; Tricuspid valve: normal; mild incompetence: Intra-cardiac hemodynamics: pulmonary systolic pressures: 38 mmHg; central venous pressures: normal No pericardial effusion
[2018-06-11] MEDS ORDERED: Pneumococcal 23-Valent Vaccine IM ONE (10:00)
== END 2018-06-09 17:44 | disposition home or self-care (01) ==
LOC: C.ER 10:13 → C.9E 14:10 → C.5S 14:38
PROVIDERS: ADMIT Hospitalist; ATTEND Hospitalist
DX: F17.200 Nicotine dependence, unspecified, uncomplicated (principal); J18.9 Pneumonia, unspecified organism; K29.70 Gastritis, unspecified, without bleeding
CPT/HCPCS: 36415; 71046; 71275; 80053; 80061; 81001; 83036; 83690; 83880; 84443; 84484; 85025; 85378; 87040; 93005; 93306; 94640; 96365; 96366; 96372; 96375; 99285; G0378; J1644; J1885; J2280; Q9967